=== PATIENT | male | born 2000 | race Caucasian/White ===

== ENCOUNTER 2022-08-11 03:16 | Emergency (ER) | payer OTHER, BC ==
[2022-08-11] MEDS ORDERED: Ketorolac Tromethamine 30 MG/ML VIAL ONE (03:42)
[2022-08-11] MEDS ORDERED: Morphine 4 MG/ML VIAL ONE (03:42)
== END 2022-08-11 05:29 | disposition home or self-care (01) ==
LOC: ERS 03:16
DX: S82.831A Other fracture of upper and lower end of right fibula, initial encounter for closed fracture (principal); W01.0XXA Fall on same level from slipping, tripping and stumbling without subsequent striking against object, initial encounter
CPT/HCPCS: 96372; J1885; J2270